=== PATIENT | female | born 1990 | race Caucasian/White ===

== ENCOUNTER 2019-07-17 02:21 | Emergency (ER) | payer OTHER ==
--- OUTSIDE RECORDS SUMMARY | 2019-07-17 02:24 | XMS REPORT ---
:1990 [facility] Address [address] [place] [id number] Care Team Providers Name Role Phone Unavailable Unavailable Unavailable Problems This patient has no known problems. Allergies, Adverse Reactions, Alerts This patient has no known allergies or adverse reactions. Medications This patient has no known medications.
--- OUTSIDE RECORDS SUMMARY | 2019-07-17 02:24 | XMS REPORT ---
:1990 Author Organization eClinical[employer] Care Team Providers Name Role Phone Judi Joshua Provider Role Unavailable Allergies, Adverse Reactions, Alerts Substance Reaction Event Type penicillin Info Not Available Drug Allergy Problems Problem Type Condition Code Onset Dates Condition Status Problem Low back pain M54.5 Active Problem Hepatitis B vaccination status Z78.9 Active unknown Problem Measles, mumps, rubella (MMR) Z78.9 Active vaccination status unknown Problem Atypical chest pain R07.89 Active Problem Tinea pedis of both feet B35.3 Active Problem Chest pain on breathing R07.1 Active Problem Encounter for general adult Z00.00 Active medical examination without abnormal findings Problem Varicella vaccination status Z78.9 Active unknown Problem Screening examination for Z11.1 Active pulmonary tuberculosis Problem Strain of left wrist, initial S66.912A Active encounter Assessment Atypical chest pain R07.89 Active Assessment Chest pain on breathing R07.1 Active Problem Dysthymic disorder F34.1 Active Problem Migraine with status migrainosus, G43.901 Active not intractable, unspecified migraine type Problem Acute seborrheic dermatitis L21.9 Active Problem Infectious gastroenteritis and A09 Active colitis, unspecified Problem Disturbance in sleep behavior G47.9 Active Medications Medication Code System Code Instructions Start Date End Date Status Dosage Mirena NDC 0 Active not defined Results Name Result Date Reference Range Unit Abnormality Flag Chest Pa And Lat (2 Views) EKG Complete Summary Purpose eClinicalWorks Submission
--- NOTE | 2019-07-17 02:48 | ER ---
Nurse's Notes [facility] Name: Melissa Lam Age: 29 yrs Sex: Female : 1990 Arrival Date: 07/17/2019 Time: 02:24 Bed 16 Private MD: Diagnosis: Urinary tract infection, site not specified Presentation: 07/17 02:30 Presenting complaint: Patient states: urinary frequency since yesterday afternoon and aa1 reports know she feels the constant urge to urinate but only small amounts are coming out at a time and she noticed some blood as well. Transition of care: patient was not received from another setting of care. Onset of symptoms was June 15, 2019. Risk Assessment: Do you want to hurt yourself or someone else? Patient reports no desire to harm self or others. Initial Sepsis Screen: Does the patient meet any 2 criteria? No. Patient's initial sepsis screen is negative. Does the patient have a suspected source of infection? Yes: Dysuria/Frequency/Urgency/UTI. Care prior to arrival: None. 02:30 Method Of Arrival: Ambulatory aa1 02:30 Acuity: KERRI 4 aa1 Triage Assessment: 02:33 General: Appears in no apparent distress. comfortable, Behavior is calm, cooperative, aa1 appropriate for age. 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 - Coronavirus screen:: The patient has NOT traveled to [place], [place], or [place] in the past 14 days. Proceed with normal triage process as indicated. - Social history:: Smoking status: Patient denies any tobacco usage or history of. - Ebola Screening: : No symptoms or risks identified at this time. Screenin:35 Abuse screen: Denies threats or abuse. Nutritional screening: No deficits noted. jb4 Tuberculosis screening: No symptoms or risk factors identified. Fall Risk None identified. Assessment: 02:35 General: Appears in no apparent distress. comfortable, Behavior is calm, cooperative, jb4 appropriate for age. Pain: Complains of pain in suprapubic area, right lower quadrant and left lower quadrant Pain does not radiate. Pain currently is 7 out of 10 on a pain scale. Neuro: Level of Consciousness is awake, alert, obeys commands, Oriented to person, place, time, situation. Cardiovascular: Patient's skin is warm and dry. Respiratory: Airway is patent Respiratory effort is even, unlabored, Respiratory pattern is regular, symmetrical. GI: Reports lower abdominal pain. : Reports burning with urination. EENT: No signs and/or symptoms were reported regarding the EENT system. Derm: Skin is intact, Skin is pink, warm \T\ dry. Musculoskeletal: No signs and/or symptoms reported regarding the musculoskeletal system. Vital Signs: 02:30 BP 140 / 94; Pulse 98; Resp 16; Temp 97.9(O); Pulse Ox 100% on R/A; jb4 02:33 Weight 75.75 kg; Height 5 ft. 9 in. (175.26 cm); Pain 7/10; aa1 02:33 Body Mass Index 24.66 (75.75 kg, 175.26 cm) aa1 ED Course: 02:24 Patient arrived in ED. jg7 02:30 Javy Bolden, RN is Primary Nurse. jb4 02:33 Triage completed. aa1 02:34 [facility] la1 02:34 Bryson Figueroa MD is Attending Physician. la1 02:35 Patient has correct armband on for positive identification. Bed in low position. Call jb4 light in reach. Side rails up X 1. Pulse ox on. NIBP on. 03:09 No provider procedures requiring assistance completed. Patient did not have IV access jb4 during this emergency room visit. Administered Medications: 03:07 Drug: Macrobid 100 mg Route: PO; jb4 03:08 Follow up: Response: Medication administered at discharge. jb4 03:07 Drug: Pyridium 200 mg Route: PO; jb4 03:08 Follow up: Response: No adverse reaction; Medication administered at discharge. jb4 Outcome: 02:47 Discharge ordered by . la1 03:09 Discharged to home ambulatory. jb4 03:09 Condition: stable 03:09 Discharge instructions given to patient, Instructed on discharge instructions, follow up and referral plans. medication usage, Demonstrated understanding of instructions, follow-up care, medications, Prescriptions given X 2. 03:10 Patient left the ED. jb4 Addendum: 07/20/2019 07:18 Addendum: Culture Results: Positive urine culture. No further action required. Bacteria e b sensitive to prescribed antibiotic. Signatures: Sofya Nicole RN RN aa1 Felipe Weinstein, EXCAVATOR OPERATOR-C EXCAVATOR OPERATOR-Cla1 Javy Bolden RN RN jb4 Aydee Harris Jessica jg7
--- NOTE | 2019-07-17 02:49 | EDPHYS ---
Physician Documentation [facility] Name: Melissa Lam Age: 29 yrs Sex: Female : 1990 Arrival Date: 07/17/2019 Time: 02:24 Bed 16 Private MD: ED Physician Bryson Figueroa HPI: 07/17 02:37 This 29 yrs old Female presents to ER via Ambulatory with complaints of Pain la1 With Urination. 02:37 The patient presents with urinary symptoms, dysuria, frequency, hematuria, urgency. la1 Onset: The symptoms/episode began/occurred today. Modifying factors: The symptoms are alleviated by nothing, the symptoms are aggravated by nothing. Associated signs and symptoms: Pertinent negatives: cramping, fever, nausea, vaginal discharge, vomiting. Severity of symptoms: At their worst the symptoms were mild. The patient's method of control includes iud. The patient has experienced a previous episode. The patient has not recently seen a physician. 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 - Coronavirus screen:: The patient has NOT traveled to [place], [place], or [place] in the past 14 days. Proceed with normal triage process as indicated. - Social history:: Smoking status: Patient denies any tobacco usage or history of. - Ebola Screening: : No symptoms or risks identified at this time. ROS: 02:38 Positive for urinary symptoms, hematuria, burning with urination. la1 02:38 Constitutional: Negative for fever, chills, and weight loss. 02:38 All other systems are negative. Exam: 02:38 Constitutional: This is a well developed, well nourished patient who is awake, alert, la1 and in no acute distress. Head/Face: Normocephalic, atraumatic. Eyes: Pupils equal round and reactive to light, extra-ocular motions intact. ENT: Mucous membranes moist. Neck: Trachea midline Chest/axilla: Normal chest wall appearance and motion. Nontender with no deformity. No lesions are appreciated. Cardiovascular: No pulse deficits. Respiratory: No increased work of breathing 02:38 Back: No spinal tenderness. No costovertebral tenderness. Full range of motion. 02:38 Abdomen/GI: Inspection: abdomen appears normal, Bowel sounds: normal, in all quadrants, Palpation: soft, in all quadrants, nontender, in all quadrants, Indicators: McBurney's point is not tender, Gonzales's sign is negative, Rovsing's sign is negative, Obturator sign is negative, Psoas sign is negative. Vital Signs: 02:30 BP 140 / 94; Pulse 98; Resp 16; Temp 97.9(O); Pulse Ox 100% on R/A; jb4 02:33 Weight 75.75 kg; Height 5 ft. 9 in. (175.26 cm); Pain 7/10; aa1 02:33 Body Mass Index 24.66 (75.75 kg, 175.26 cm) aa1 MDM: 02:34 Patient medically screened. la1 02:39 Data reviewed: vital signs, nurses notes, lab test result(s), and as a result, I will la1 discharge patient. Data interpreted: Pulse oximetry: on room air is 100 %. Interpretation: normal. Counseling: I had a detailed discussion with the patient and/or guardian regarding: the historical points, exam findings, and any diagnostic results supporting the discharge/admit diagnosis, lab results, the need for outpatient follow up, a family practitioner. 07/17 02:50 Order name: Urine Culture [facility] 07/17 02:55 Order name: Urine Dipstick--Ancillary (enter results) in 07/17 02:29 Order name: Urine Dipstick-Ancillary (obtain specimen); Complete Time: 02:55 aa 07/17 02:55 Order name: Urine --Ancillary (enter results) in 07/17 02:29 Order name: Urine Test (obtain specimen); Complete Time: 02:55 aa Administered Medications: 03:07 Drug: Macrobid 100 mg Route: PO; jb4 03:08 Follow up: Response: Medication administered at discharge. jb4 03:07 Drug: Pyridium 200 mg Route: PO; jb4 03:08 Follow up: Response: No adverse reaction; Medication administered at discharge. jb4 Disposition: 03:15 Co-signature as Attending Physician, Bryson Figueroa MD. pkl Disposition: 07/17/19 02:47 Discharged to Home. Impression: Urinary tract infection, site not specified. - Condition is Stable. - Discharge Instructions: Urinary Tract Infection, Adult, Urinary Tract Infection, Adult, Bhhi-yq-Telx. - Prescriptions for Pyridium 200 mg Oral Tablet - take 1 tablet by ORAL route every 8 hours for 3 days; 9 tablet. Macrobid 100 mg Oral Capsule - take 1 capsule by ORAL route every 12 hours for 7 days; 14 capsule. - Medication Reconciliation Form, Thank You Letter, Antibiotic Education form. - Follow up: Private Physician; Reason: Recheck today's complaints, Re-evaluation by your physician. - Problem is new. - Symptoms have improved. Signatures: Dispatcher [employer] EDMS Sofya Nicole, RN RN aa1 Bryson Figueroa MD MD pkl Felipe Weinstein, FISHER SPONGE HOOKING-C FISHER SPONGE HOOKING-Cla1 Javy Bolden RN RN jb4 Corrections: (The following items were deleted from the chart) 03:10 02:47 07/17/2019 02:47 Discharged to Home. Impression: Urinary tract infection, site jb4 not specified. Condition is Stable. Discharge Instructions: Urinary Tract Infection, Adult, Urinary Tract Infection, Adult, Fzoi-yu-Phok. Prescriptions for Pyridium 200 mg Oral Tablet - take 1 tablet by ORAL route every 8 hours for 3 days; 9 tablet, Macrobid 100 mg Oral Capsule - take 1 capsule by ORAL route every 12 hours for 7 days; 14 capsule. and Forms are Medication Reconciliation Form, Thank You Letter, Antibiotic Education, Prescription Opioid Use. Follow up: Private Physician; Reason: Recheck today's complaints, Re-evaluation by your physician. Problem is new. Symptoms have improved. la1
[2019-07-17] MEDS ORDERED: PHENAZOPYRIDINE 100MG TAB PO ONE (03:01)
[2019-07-17] MEDS ORDERED: NITROFURAN MACRO 100 MG CAP PO ONE (03:02)
[2019-07-17 03:23] VITALS: BP 140/94; TEMP 97.9; O2SAT 100
[2019-07-17 03:32] LABS: Urine Blood 3+ (NEG); Urine Glucose NEGATIVE (NEG); Urine Protein 2+ (NEG); Urine Specific Gravity >1.030 (1.005-1.030)
== END 2019-07-17 03:10 | disposition home or self-care (01) ==
LOC: ER 02:21
DX: N39.0 Urinary tract infection, site not specified (principal); Z88.0 Allergy status to penicillin; Z88.1 Allergy status to other antibiotic agents
CPT/HCPCS: 81003; 81025; 87077; 87086; 87088; 87186; 99283

== ENCOUNTER 2019-07-25 09:21 | Emergency (ER) | payer OTHER ==
--- OUTSIDE RECORDS SUMMARY | 2019-07-25 09:23 | XMS REPORT ---
:1990 [facility] Address [address] [place] [id number] Care Team Providers Name Role Phone Unavailable Unavailable Unavailable Problems This patient has no known problems. Allergies, Adverse Reactions, Alerts This patient has no known allergies or adverse reactions. Medications This patient has no known medications.
--- NOTE | 2019-07-25 10:40 | RAD REPORT ---
EXAM DESCRIPTION: CT - [id number] - 07/25/2019 10:30 am CLINICAL HISTORY: Trauma, head and neck injury. PAIN COMPARISON: No comparisons TECHNIQUE: Axial 5 mm thick images of the head were obtained. Axial 2 mm thick images of the cervical spine were obtained with sagittal and coronal reconstruction images generated and reviewed. All CT scans are performed using dose optimization technique as appropriate and may include automated exposure control or mA/KV adjustment according to patient size. FINDINGS: CT HEAD WITHOUT CONTRAST: No acute hemorrhage, hydrocephalus or extra-axial collection is identified.No areas of brain edema or midline shift. The paranasal sinuses and mastoids are clear.The calvarium is intact. CT CERVICAL SPINE WITHOUT CONTRAST: No fracture or subluxation.No prevertebral soft tissues swelling is identified. IMPRESSION: No acute intracranial or cervical spine findings.
[2019-07-25] MEDS ORDERED: NA CHLORIDE 0.9% 1,000 ML ONE (10:41)
[2019-07-25 10:54] LABS: Absolute Lymphocytes (CBC) 1.9 K/uL (0.7-4.9); Basophils % 0.5 % (0-1.3); Lymphocytes % 18.4 % (15.3-44.8); MPV 7.8 fL (7.6-11.3)
[2019-07-25 11:09] LABS: Albumin 4.1 g/dL (3.4-5.0); Bilirubin Direct 0.2 mg/dL (0-0.2); Bilirubin Total 0.7 mg/dL (0.2-1.0); Potassium 3.8 mmol/L (3.5-5.1); Protein, Total 8.8 g/dL (6.4-8.2)
[2019-07-25] MEDS ORDERED: KETOROLAC 30 MG/ML INJ ONE (11:36)
[2019-07-25 11:57] LABS: Urine Blood NEGATIVE (NEG); Urine Glucose NEGATIVE (NEG); Urine Protein NEGATIVE (NEG); Urine Specific Gravity 1.015 (1.005-1.030)
[2019-07-25 12:09] LABS: Urine Bacteria 20-50 /HPF (<20); Urine Culture Reflex Order REFLEXED; Urine RBC <5 /HPF (NONE SEEN)
--- NOTE | 2019-07-25 12:37 | EDPHYS ---
Physician Documentation [facility] Name: Melissa Lam Age: 29 yrs Sex: Female : 1990 Arrival Date: 07/25/2019 Time: 09:23 Bed 13 Private MD: ED Physician Gordon Van HPI: 07/25 10:53 This 29 yrs old Female presents to ER via Ambulatory with complaints of kb Passed Out Prior To Arrival. 10:53 The patient has experienced syncope, lost consciousness. Onset: The symptoms/episode kb began/occurred just prior to arrival. Duration: This was a single episode. Context: occurred at home, occurred while the patient was defecating, Just prior to the episode the patient experienced abdominal pain, headache. Associated injury: Head/face: right occipital area, pain, Neck: right supraclavicular area and right clavicle. Associated signs and symptoms: Pertinent positives: abdominal pain, diarrhea, headache, nausea. Current symptoms: headache, that is moderate. The patient has not experienced similar symptoms in the past. The patient has not recently seen a physician. Pt reports headache and nausea for 3 days, abd pain and diarrhea this morning. States she went to the restroom and passed out while sitting on the toilet. Both sons have had a viral illness for the last week. 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 - Coronavirus screen:: The patient has NOT traveled to [place] in the past 14 days. Proceed with normal triage process as indicated. - Social history:: Smoking status: Patient denies any tobacco usage or history of. - Ebola Screening: : Patient negative for fever greater than or equal to 101.5 degrees Fahrenheit, and additional compatible Ebola Virus Disease symptoms Patient denies exposure to infectious person Patient denies travel to an Ebola-affected area in the 21 days before illness onset No symptoms or risks identified at this time. ROS: 10:52 Constitutional: Negative for fever, chills, and weight loss, ENT: Negative for injury, kb pain, and discharge, Neck: Negative for injury, pain, and swelling, Cardiovascular: Negative for chest pain, palpitations, and edema, Respiratory: Negative for shortness of breath, cough, wheezing, and pleuritic chest pain, Back: Negative for injury and pain, : Negative for injury, bleeding, discharge, and swelling, MS/Extremity: Negative for injury and deformity, Skin: Negative for injury, rash, and discoloration. 10:52 Abdomen/GI: Positive for abdominal pain, nausea, diarrhea. 10:52 Neuro: Positive for headache. Exam: 10:43 ECG was reviewed by the Attending Physician. kb 10:53 Constitutional: This is a well developed, well nourished patient who is awake, alert, kb and in no acute distress. Head/Face: Normocephalic, atraumatic. ENT: Nares patent. No nasal discharge, no septal abnormalities noted. Tympanic membranes are normal and external auditory canals are clear. Oropharynx with no redness, swelling, or masses, exudates, or evidence of obstruction, uvula midline. Mucous membranes moist. Neck: Trachea midline, no thyromegaly or masses palpated, and no cervical lymphadenopathy. Supple, full range of motion without nuchal rigidity, or vertebral point tenderness. No Meningismus. Chest/axilla: Normal chest wall appearance and motion. Nontender with no deformity. No lesions are appreciated. Cardiovascular: Regular rate and rhythm with a normal S1 and S2. No gallops, murmurs, or rubs. Normal PMI, no JVD. No pulse deficits. Respiratory: Lungs have equal breath sounds bilaterally, clear to auscultation and percussion. No rales, rhonchi or wheezes noted. No increased work of breathing, no retractions or nasal flaring. Back: No spinal tenderness. No costovertebral tenderness. Full range of motion. Skin: Warm, dry with normal turgor. Normal color with no rashes, no lesions, and no evidence of cellulitis. MS/ Extremity: Pulses equal, no cyanosis. Neurovascular intact. Full, normal range of motion. Neuro: Awake and alert, GCS 15, oriented to person, place, time, and situation. Cranial nerves II-XII grossly intact. Motor strength 5/5 in all extremities. Sensory grossly intact. Cerebellar exam normal. Normal gait. 10:53 Abdomen/GI: Inspection: abdomen appears normal, Bowel sounds: normal, in all quadrants, Palpation: soft, in all quadrants, mild abdominal tenderness, in all quadrants. Vital Signs: 09:53 BP 127 / 81; Pulse 98; Resp 16; Temp 98.1(TE); Pulse Ox 99% on R/A; Weight 74.84 kg; iw Height 5 ft. 9 in. (175.26 cm); Pain 7/10; 11:00 BP 117 / 72; Pulse 86; Resp 16; Pulse Ox 100% on R/A; ph 12:04 BP 111 / 69; Pulse 85; Resp 18; Pulse Ox 99% on R/A; ph 09:53 Body Mass Index 24.37 (74.84 kg, 175.26 cm) iw MDM: 09:45 Patient medically screened. kb 10:49 Differential Diagnosis: idiopathic syncope, vasovagal episode. Data reviewed: vital kb signs, nurses notes. Data interpreted: Pulse oximetry: on room air is 99 %. Interpretation: normal. 12:36 Counseling: I had a detailed discussion with the patient and/or guardian regarding: the kb historical points, exam findings, and any diagnostic results supporting the discharge/admit diagnosis, lab results, radiology results, the need for outpatient follow up, a family practitioner, to return to the emergency department if symptoms worsen or persist or if there are any questions or concerns that arise at home. 07/25 10:14 Order name: Basic Metabolic Panel 07/25 10:14 Order name: CBC with Diff 07/25 10:14 Order name: Hepatic Function 07/25 10:14 Order name: Lipase 07/25 10:14 Order name: Urine Microscopic Only 07/25 10:14 Order name: [place] Screen Profile 07/25 10:14 Order name: Flu kb 07/25 10:56 Order name: CBC with Automated Diff; Complete Time: 11:01 EDMS 07/25 11:10 Order name: Basic Metabolic Panel; Complete Time: 11:12 EDMS 07/25 11:10 Order name: Liver (Hepatic) Function; Complete Time: 11:12 EDMS 07/25 11:10 Order name: Lipase; Complete Time: 11:12 EDMS 07/25 11:13 Order name: Influenza Screen (A ; Complete Time: 11:14 EDMS 07/25 11:32 Order name: Urine Dipstick--Ancillary (enter results) bd 07/25 11:32 Order name: Urine --Ancillary (enter results) bd 07/25 10:14 Order name: IV Saline Lock; Complete Time: 10:54 kb 07/25 10:14 Order name: Labs collected and sent; Complete Time: 10:54 kb 07/25 10:14 Order name: Urine Test (obtain specimen); Complete Time: 11:06 kb 07/25 10:14 Order name: Urine Dipstick-Ancillary (obtain specimen); Complete Time: 11:06 kb 07/25 10:14 Order name: EKG; Complete Time: 10:15 kb 07/25 10:14 Order name: EKG - Nurse/Tech; Complete Time: 10:54 kb 07/25 10:14 Order name: CT Head C Spine kb 07/25 10:43 Order name: CT; Complete Time: 10:43 EDMS 07/25 11:34 Order name: [place] Screen; Complete Time: 11:41 EDMS 07/25 11:58 Order name: Urine --Ancillary; Complete Time: 12:01 EDMS 07/25 11:58 Order name: Urine Dipstick-Ancillary; Complete Time: 12:01 EDMS 07/25 12:10 Order name: Urine Microscopic Only; Complete Time: 12:30 EDMS EC:43 Rate is 77 beats/min. Rhythm is regular, Normal Sinus Rhythm. Right axis deviation kb noted. LA interval is normal at 130 msec. QRS interval is normal at 74 msec. QT interval is normal at 390 msec. Administered Medications: 11:06 Drug: NS 0.9% 1000 ml Route: IV; Rate: 1000 ml; Site: right antecubital; ph 11:45 Drug: TORadol - Ketorolac 15 mg Route: IVP; Site: right antecubital; ph Disposition: 13:32 Co-signature as Attending Physician, Gordon Van MD I agree with the assessment and kdr plan of care. Disposition: 07/25/19 12:36 Discharged to Home. Impression: Syncope and collapse. - Condition is Stable. - Discharge Instructions: Syncope, [id number]. - Prescriptions for Zofran 4 mg Oral Tablet - take 1 tablet by ORAL route every 6 hours As needed; 20 tablet. - Medication Reconciliation Form, Thank You Letter, Antibiotic Education, Prescription Opioid Use, Family Work Release form. - Follow up: Emergency Department; When: As needed; Reason: Worsening of condition. Follow up: Private Physician; When: 2 - 3 days; Reason: Recheck today's complaints, Continuance of care, Re-evaluation by your physician. Signatures: Dispatcher [employer] EDMS Diana Stewart, MULTIMEDIA SERVICES MANAGER-C MULTIMEDIA SERVICES MANAGER-Ckb Gordon Van MD MD kdr Williams, Irene, RN RN iw Velia Diaz RN RN ph Corrections: (The following items were deleted from the chart) 13:09 12:36 07/25/2019 12:36 Discharged to Home. Impression: Syncope and collapse. Condition ph is Stable. Forms are Medication Reconciliation Form, Thank You Letter, Antibiotic Education, Prescription Opioid Use. Follow up: Emergency Department; When: As needed; Reason: Worsening of condition. Follow up: Private Physician; When: 2 - 3 days; Reason: Recheck today's complaints, Continuance of care, Re-evaluation by your physician. kb
--- NOTE | 2019-07-25 12:37 | ER ---
Nurse's Notes [facility] Name: Melissa Lam Age: 29 yrs Sex: Female : 1990 Arrival Date: 07/25/2019 Time: 09:23 Bed 13 Private MD: Diagnosis: Syncope and collapse Presentation: 07/25 09:51 Presenting complaint: Patient states: had headache last night, woke up with abd pain iw this morning, went to bathroom and had a BM then passed out while finishing, hit her head and shoulder on a cabinet, pt still having a bad headache and mild abd pain. Transition of care: patient was not received from another setting of care. Onset of symptoms was July 25, 2019. Risk Assessment: Do you want to hurt yourself or someone else? Patient reports no desire to harm self or others. Initial Sepsis Screen: Does the patient meet any 2 criteria? No. Patient's initial sepsis screen is negative. Does the patient have a suspected source of infection? No. Patient's initial sepsis screen is negative. Care prior to arrival: None. 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 - Coronavirus screen:: The patient has NOT traveled to [place] in the past 14 days. Proceed with normal triage process as indicated. - Social history:: Smoking status: Patient denies any tobacco usage or history of. - Ebola Screening: : Patient negative for fever greater than or equal to 101.5 degrees Fahrenheit, and additional compatible Ebola Virus Disease symptoms Patient denies exposure to infectious person Patient denies travel to an Ebola-affected area in the 21 days before illness onset No symptoms or risks identified at this time. Screenin:02 Abuse screen: Denies threats or abuse. Denies injuries from another. Nutritional ph screening: No deficits noted. Tuberculosis screening: No symptoms or risk factors identified. Fall Risk Fall in past 12 months (25 points). No secondary diagnosis (0 pts). No IV (0 pts). Ambulatory Aid- None/Bed Rest/Nurse Assist (0 pts). Gait- Normal/Bed Rest/Wheelchair (0 pts) Mental Status- Oriented to own ability (0 pts). Total Stewart Fall Scale indicates Low Risk Score (25-44 pts). Fall prevention measures have been instituted. Side Rails Up X 2 Frequent Obs/Assesments occuring As available Patient and Family Educated on Fall Prevention Program and strategies. Assessment: 10:15 General: Appears in no apparent distress. comfortable, well groomed, Behavior is calm, ph cooperative, appropriate for age, Denies fever. Pain: Complains of pain in right clavicle and right occipital area. Neuro: Level of Consciousness is awake, alert, obeys commands, Oriented to person, place, time, situation, Reports headache in right occipital area, a syncopal episode Denies weakness blurred vision dizziness. Cardiovascular: Reports syncope, Denies chest pain, nausea, vomiting, Rhythm is regular. Respiratory: Airway is patent Respiratory effort is even, unlabored. 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 Derm: Skin is intact, is healthy with good turgor, Skin is pink, warm \T\ dry. Musculoskeletal: Circulation, motion, and sensation intact. Range of motion: intact in all extremities. 11:30 Reassessment: Patient appears in no apparent distress at this time. Patient and/or ph family updated on plan of care and expected duration. Pain level reassessed. Patient is alert, oriented x 3, equal unlabored respirations, skin warm/dry/pink. Vital Signs: 09:53 BP 127 / 81; Pulse 98; Resp 16; Temp 98.1(TE); Pulse Ox 99% on R/A; Weight 74.84 kg; iw Height 5 ft. 9 in. (175.26 cm); Pain 7/10; 11:00 BP 117 / 72; Pulse 86; Resp 16; Pulse Ox 100% on R/A; ph 12:04 BP 111 / 69; Pulse 85; Resp 18; Pulse Ox 99% on R/A; ph 09:53 Body Mass Index 24.37 (74.84 kg, 175.26 cm) iw ED Course: 09:23 Patient arrived in ED. ag5 09:30 Diana Stewart FNP-C [facility]. kb 09:30 Gordon Van MD is Attending Physician. kb 09:53 Triage completed. iw 09:53 Arm band placed on. iw 10:01 Velia Diaz, RN is Primary Nurse. ph 10:02 Patient has correct armband on for positive identification. Bed in low position. Call ph light in reach. Side rails up X 1. Pulse ox on. NIBP on. Door closed. Noise minimized. Warm blanket given. 10:44 Initial lab(s) drawn, by me, sent to lab. Flu and/or RSV swab sent to lab. Inserted dh3 saline lock: 22 gauge in right antecubital area, using aseptic technique. Blood collected. 12:03 No provider procedures requiring assistance completed. ph Administered Medications: 11:06 Drug: NS 0.9% 1000 ml Route: IV; Rate: 1000 ml; Site: right antecubital; ph 11:45 Drug: TORadol - Ketorolac 15 mg Route: IVP; Site: right antecubital; ph Outcome: 12:36 Discharge ordered by . kb 13:09 Patient left the ED. ph Signatures: Diana Stewart FNP-C FNP-Zahira Barlow, RUPAL RN Velia Diaz, RN RN Merry Sky 3 Fawn Mendoza ag5
--- NOTE | 2019-07-25 17:59 | EKG ---
Test Date: 2019-07-25 Test Time: 10:38:31 Dopster: [place] MEASUREMENT RESULTS: Intervals: Rate: 77 KS: 130 QRSD: 74 QT: 390 QTc: 441 [place]: P: 72 KS: 130 QRS: 95 T: 70 INTERPRETIVE STATEMENTS: Normal sinus rhythm Rightward axis Borderline ECG No previous ECG available for comparison Electronically Signed On 07-25-19 17:58:12 AUTOMOTIVE SALES PROFESSIONAL by Boris Suggs
[2019-07-26 19:03] VITALS: TEMP 98.1
[2019-07-26 19:07] VITALS: BP 111/69; O2SAT 99
== END 2019-07-25 13:09 | disposition home or self-care (01) ==
LOC: ER 09:21
DX: R55 Syncope and collapse (principal); Z88.0 Allergy status to penicillin; Z88.1 Allergy status to other antibiotic agents
CPT/HCPCS: 93005; 87088; 85025; 80048; 36415; 86308; 81025; 80076; 83690; 87804 ×2; 70450; 72125; 96374; 99284; J7030; 81003; 81015; 87086

== ENCOUNTER 2020-08-24 19:22 | Emergency (ER) | payer OTHER ==
--- OUTSIDE RECORDS SUMMARY | 2020-08-24 19:25 | XMS REPORT | Continuity of Care Document ---
:1990 Author Organization [facility] t Address [address] [place] [address] Care Team Providers Name Role Phone Unavailable Unavailable Unavailable Problems This patient has no known problems. Allergies, Adverse Reactions, Alerts Allergy Allergy Status Severity Reaction(s) Onset Inactive Treating Comm ents Source Name Type Date Date Clinician penicill Adverse Active Info Not [facility] Medications Ordered Filled Start Stop Current Ordering Indication Dosage Frequency Signature Comments Components Source Medication Medication Date Date Medication? Clinician (SIG) Name Name Angela Miller 2019-0 Yes Judi [address] [facility] [place] [facility] Topiramate Topiramate 2019-0 Yes Judi [address] [facility] [place] [facility] Bactrim DS Bactrim DS 2019-0 2020- No Judi [address] [facility] 3[facility]02 -09 [place] [facility] Mirena Mirena Yes Judi not [facility] defined [facility]ics Immunizations Ordered Filled Immunization Date Status Comments Sourc e Immunization Name Name Tb PPD intradermal, Tb PPD intradermal, 2018-08-[address] [facility] Procedures This patient has no known procedures. Encounters Start End Encounter Admission Attending Care Care Encounter Source Date/Time Date/Time Type Type Clinicians Facility Department ID 2020-04-16 2020-04-16 [id number] 2020-03-13 2020-03-13 [facility] [id number] [facility] 2020-03-10 2020-03-10 [facility] [id number] 2019-08-13 2019-08-13 [facility] [id number] [facility] Clin[facility] 2019-04-04 2019-04-04 [facility] [id number] [facility] 2018-11-28 2018-11-28 [facility] [id number] [facility] 15[facility] 15:40:00 [facility] Clin[facility] 2018-10-09 2018-10-09 [facility] [id number] [facility] 10[facility]30[facility]00 10:30:00 [facility] Clin[facility] 2018-09-27 2018-09-27 [facility] [id number] [facility] 13[facility] 13[facility]51[facility] 2018-09-25 2018-09-25 [facility] [id number] [facility] 15:40[facility]00 15:40:00 [facility]pat[facility] Clinics 2018-09-25 2018-09-25 [facility] [id number] [address] 11:30:00 11:30:00 [facility] Outpat[facility] Clinics 2018-08-29 2018-08-29 [facility] [id number] 14:30:00 14:30:00 [facility] Medicine Outpati ent Clinics Results This patient has no known results.
[2020-08-24 21:30] LABS: Absolute Lymphocytes (CBC) 0.8 K/uL (0.7-4.9); Basophils % 0.1 % (0-1.3); Lymphocytes % 8.7 % (15.3-44.8); MPV 7.8 fL (7.6-11.3); RBC Red Blood Cell Count 4.49 M/uL (3.86-4.86)
[2020-08-24] MEDS ORDERED: ONDANSETRON 4 MG/2 ML VIAL ONE (21:38)
[2020-08-24] MEDS ORDERED: NA CHLORIDE 0.9% 1,000 ML ONE (21:38)
[2020-08-24 21:47] LABS: Albumin 4.3 g/dL (3.4-5.0); Bilirubin Direct 0.2 mg/dL (0-0.2); Bilirubin Total 1.2 mg/dL (0.2-1.0); Potassium 3.3 mmol/L (3.5-5.1); Protein, Total 8.9 g/dL (6.4-8.2)
[2020-08-24 22:02] LABS: SARS-COV-2 RT PCR NEGATIVE (NEGATIVE)
[2020-08-24] MEDS ORDERED: ACETAMINOPHEN 500 MG TAB ONE (22:03)
--- NOTE | 2020-08-24 22:33 | EDPHYS ---
Physician Documentation [facility] Name: Melissa Lam Age: 30 yrs Sex: Female : 1990 Arrival Date: 08/24/2020 Time: 19:23 Bed 15 Private MD: ED Physician Evans Bridges HPI: 08/24 23:40 This 30 yrs old Female presents to ER via Ambulatory with complaints of kb Vomiting, Fever. 23:40 The patient presents to the emergency department with nausea, vomiting, diarrhea. kb Onset: The symptoms/episode began/occurred yesterday. Possible causes: 2nd moderna covid vaccine. The symptoms are aggravated by nothing. The symptoms are alleviated by nothing. Associated signs and symptoms: Pertinent positives: diarrhea, fever, nausea, vomiting, Pertinent negatives: abdominal pain. Severity of symptoms: At their worst the symptoms were moderate in the emergency department the symptoms are unchanged. The patient has not experienced similar symptoms in the past. The patient has not recently seen a physician. 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 - Social history:: Smoking status: Patient denies any tobacco usage or history of. ROS: 23:39 Cardiovascular: Negative for chest pain, palpitations, and edema, Respiratory: Negative kb for shortness of breath, cough, wheezing, and pleuritic chest pain, MS/Extremity: Negative for injury and deformity, Skin: Negative for injury, rash, and discoloration. 23:39 Constitutional: Positive for fever, malaise. 23:39 Abdomen/GI: Positive for nausea, vomiting, and diarrhea. 23:39 Neuro: Positive for headache. Exam: 23:40 Constitutional: This is a well developed, well nourished patient who is awake, alert, kb and in no acute distress. Head/Face: Normocephalic, atraumatic. Cardiovascular: Regular rate and rhythm with a normal S1 and S2. No gallops, murmurs, or rubs. No pulse deficits. Respiratory: Respirations even and unlabored. No increased work of breathing, no retractions or nasal flaring. Abdomen/GI: Soft, non-tender. No distention Skin: Warm, dry with normal turgor. Normal color with no rashes, no lesions, and no evidence of cellulitis. MS/ Extremity: Pulses equal, no cyanosis. Neurovascular intact. Full, normal range of motion. Neuro: Awake and alert, GCS 15, oriented to person, place, time, and situation. Moves all extremities. Normal gait. Vital Signs: 20:06 BP 135 / 90; Pulse 107; Resp 17; Temp 99.1; Pulse Ox 99% ; Weight 75.75 kg; Height 5 ll1 ft. 9 in. (175.26 cm); Pain 9/10; 21:00 BP 114 / 82; Pulse 104; Resp 18; Pulse Ox 98% ; wh 21:15 Temp 99.7(O); ll1 22:00 BP 104 / 74; Pulse 97; Resp 18; Pulse Ox 99% on R/A; wh 20:06 Body Mass Index 24.66 (75.75 kg, 175.26 cm) ll1 MDM: 20:54 Patient medically screened. kb 23:38 Data reviewed: vital signs, nurses notes. Data interpreted: Pulse oximetry: on room air kb is 99 %. Interpretation: normal. Counseling: I had a detailed discussion with the patient and/or guardian regarding: the historical points, exam findings, and any diagnostic results supporting the discharge/admit diagnosis, lab results, the need for outpatient follow up, a family practitioner, to return to the emergency department if symptoms worsen or persist or if there are any questions or concerns that arise at home. 08/24 19:43 Order name: Basic Metabolic Panel; Complete Time: 22:00 tw4 08/24 19:43 Order name: CBC with Diff; Complete Time: 22:40 tw4 08/24 19:43 Order name: Hepatic Function; Complete Time: 22:00 tw4 08/24 19:43 Order name: Lipase; Complete Time: 22:00 tw4 08/24 19:43 Order name: IV Saline Lock; Complete Time: 21:18 tw4 08/24 22:01 Order name: Manual Differential; Complete Time: 22:40 EDMS 08/24 22:03 Order name: COVID-19/FLU A+B; Complete Time: 22:11 EDMS 08/24 19:43 Order name: Labs collected and sent; Complete Time: 21:18 tw4 Administered Medications: 21:22 Drug: NS 0.9% 1000 ml Route: IV; Rate: 1000 ml; Site: right antecubital; 22:12 Follow up: Response: No adverse reaction; IV Status: Completed infusion 21:24 Drug: Zofran (Ondansetron) 4 mg Route: IVP; Site: right antecubital; 22:12 Follow up: Response: No adverse reaction; Nausea is decreased 21:47 Drug: Tylenol 1000 mg Route: PO; 22:13 Follow up: Response: No adverse reaction; Pain is decreased 22:29 Drug: Potassium Chloride 20 mEq Route: PO; 22:42 Follow up: Response: No adverse reaction Disposition: 08/25 05:35 Co-signature as Attending Physician, Evans Bridges MD I agree with the assessment and tw4 plan of care. Disposition: 08/24/20 22:32 Discharged to Home. Impression: Adverse reaction to moderna vaccine. - Condition is Stable. - Prescriptions for Zofran 4 mg Oral Tablet - take 1 tablet by ORAL route every 6 hours As needed; 20 tablet. - Medication Reconciliation Form, Thank You Letter, Antibiotic Education, Prescription Opioid Use form. - Follow up: Emergency Department; When: As needed; Reason: Worsening of condition. Follow up: Private Physician; When: 2 - 3 days; Reason: Recheck today's complaints, Continuance of care, Re-evaluation by your physician. Signatures: Dispatcher [employer] EDOK Diana Stewart, GLASS CURVATURE GAUGER-C GLASS CURVATURE GAUGER-Ckb Jessika Ross, RN RN Evans Bridges MD MD tw4 [facility] Javid Damon RN RN ll1 Corrections: (The following items were deleted from the chart) 08/24 21:23 20:48 Influenza Screen (A \T\ B)+BA.LAB.BRZ ordered. EDOK EDOK 21:23 20:48 CORONAVIRUS+MR.LAB.BRZ ordered. EDOK EDMS 22:01 21:32 CBC Smear Scan ordered. EDOK EDMS 22:42 22:32 08/24/2020 22:32 Discharged to Home. Impression: Adverse reaction to moderna mw2 vaccine. Condition is Stable. Forms are Medication Reconciliation Form, Thank You Letter, Antibiotic Education, Prescription Opioid Use. Follow up: Emergency Department; When: As needed; Reason: Worsening of condition. Follow up: Private Physician; When: 2 - 3 days; Reason: Recheck today's complaints, Continuance of care, Re-evaluation by your physician. kb
--- NOTE | 2020-08-24 22:33 | ER ---
Nurse's Notes [facility] Name: Melissa Lam Age: 30 yrs Sex: Female : 1990 Arrival Date: 08/24/2020 Time: 19:23 Bed 15 Private MD: Diagnosis: Adverse reaction to moderna vaccine Presentation: 08/24 20:05 Chief complaint: Patient states: N/V. body aches, fever since 1730 yesterday. Got the ll1 Moderna shot (2nd) right before her symptoms started. 20:06 Coronavirus screen: Client denies travel out of the [place] in the last 14 days. fatigue, ll1 nausea, vomiting. Client presents with at least one sign or symptom that may indicate coronavirus-19. Standard/surgical mask placed on the client. Ebola Screen: Patient denies travel to an Ebola-affected area in the 21 days before illness onset. Initial Sepsis Screen: Does the patient meet any 2 criteria? HR > 90 bpm. No. Patient's initial sepsis screen is negative. Does the patient have a suspected source of infection? Yes: Other: N/V. Risk Assessment: Do you want to hurt yourself or someone else? Patient reports no desire to harm self or others. Onset of symptoms was August 23, 2020. 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 - Social history:: Smoking status: Patient denies any tobacco usage or history of. Screenin:30 Abuse screen: Denies threats or abuse. Denies injuries from another. Nutritional wh screening: No deficits noted. Tuberculosis screening: No symptoms or risk factors identified. Fall Risk None identified. Assessment: 21:30 General: Appears in no apparent distress. Behavior is calm, cooperative, appropriate wh for age. General: Reports fever for feeling ill for. Pain: Complains of pain in headache. Neuro: Level of Consciousness is awake, alert, obeys commands, Oriented to person, place, time, situation, Appropriate for age Reports headache. Cardiovascular: Capillary refill < 3 seconds. Respiratory: Airway is patent Respiratory effort is even, unlabored, Respiratory pattern is regular, symmetrical. GI: Abdomen is flat, non-distended, Reports nausea, vomiting. : No signs and/or symptoms were reported regarding the genitourinary system. EENT: No signs and/or symptoms were reported regarding the EENT system. Derm: Skin is intact, is healthy with good turgor, Skin is pink, warm \T\ dry. normal. Musculoskeletal: Circulation, motion, and sensation intact. Vital Signs: 20:06 BP 135 / 90; Pulse 107; Resp 17; Temp 99.1; Pulse Ox 99% ; Weight 75.75 kg; Height 5 ll1 ft. 9 in. (175.26 cm); Pain 9/10; 21:00 BP 114 / 82; Pulse 104; Resp 18; Pulse Ox 98% ; wh 21:15 Temp 99.7(O); ll1 22:00 BP 104 / 74; Pulse 97; Resp 18; Pulse Ox 99% on R/A; wh 20:06 Body Mass Index 24.66 (75.75 kg, 175.26 cm) ll1 ED Course: 19:23 Patient arrived in ED. cl3 20:07 Triage completed. ll1 20:07 Arm band placed on. ll1 20:47 Diana Stewart FNP-C is [facility]. kb 20:47 Evans Bridges MD is Attending Physician. kb 20:55 Jessika Ross, RUPAL is Primary Nurse. wh 21:10 Initial lab(s) drawn, by me, sent to lab. COVID swab sent to lab. Flu and/or RSV swab jp3 sent to lab. Strep swab sent to lab. Inserted saline lock: 20 gauge in right antecubital area, using aseptic technique. Blood collected. Patient maintains SpO2 saturation greater than 95% on room air. 21:26 Bed in low position. Call light in reach. Side rails up X 1. Verbal reassurance given. jp3 Pulse ox on. NIBP on. 22:42 No provider procedures requiring assistance completed. IV discontinued, intact, wh bleeding controlled, No redness/swelling at site. Administered Medications: 21:22 Drug: NS 0.9% 1000 ml Route: IV; Rate: 1000 ml; Site: right antecubital; 22:12 Follow up: Response: No adverse reaction; IV Status: Completed infusion 21:24 Drug: Zofran (Ondansetron) 4 mg Route: IVP; Site: right antecubital; 22:12 Follow up: Response: No adverse reaction; Nausea is decreased 21:47 Drug: Tylenol 1000 mg Route: PO; 22:13 Follow up: Response: No adverse reaction; Pain is decreased 22:29 Drug: Potassium Chloride 20 mEq Route: PO; 22:42 Follow up: Response: No adverse reaction Outcome: 22:32 Discharge ordered by . kb 22:42 Patient left the ED. mw2 22:42 Discharged to home ambulatory. 22:42 Condition: stable 22:42 Discharge instructions given to patient, Instructed on discharge instructions, follow up and referral plans. medication usage, POC Demonstrated understanding of instructions, follow-up care, medications, POC Prescriptions given X 1. Signatures: Diana Stewart, BUSINESS EXCELLENCE MANAGER-C BUSINESS EXCELLENCE MANAGER-CkJessika Rodriguez RN RN Brenda Cristobal 2 Shantanu Deras 3 Shilo Damon cl3 Javid Damon RN RN ll1
[2020-08-24 22:35] LABS: Blood Morphology Comment NOT SEEN (NOT SEEN); Platelet Estimate ADEQ
[2020-08-24] MEDS ORDERED: POTASSIUM CL SA 10 MEQ TAB PO ONE (22:44)
[2020-08-25 17:36] VITALS: BP 104/74; O2SAT 99
[2020-08-25 17:37] VITALS: TEMP 99.7
== END 2020-08-24 22:42 | disposition home or self-care (01) ==
LOC: ER 19:22
DX: T88.1XXA Other complications following immunization, not elsewhere classified, initial encounter (principal); R50.9 Fever, unspecified; Z20.822 Contact with and (suspected) exposure to COVID-19; Z88.0 Allergy status to penicillin; Z88.1 Allergy status to other antibiotic agents
CPT/HCPCS: 85025; 80048; 36415; 80076; 83690; 0240U; J7030; J2405; 96361; 96374; 99284

== ENCOUNTER 2023-09-10 15:08 | Emergency (ER) | payer OTHER ==
--- OUTSIDE RECORDS SUMMARY | 2023-09-10 15:21 | XMS REPORT | Continuity of Care Document ---
Author Name Unknown Address [address] [facility] [address] [place] [address] [facility] Address [address] [facility] [address] [place] [address] Care Team Providers Care Flue Gas Analyst Name Role Phone JUDI HENRIQUEZ Primary Care Physician Unavaila Judi Dasilva Attending Clinician Unavailable Garry Attending Clinician Unavaila ble RADIOLOGY Attending Clinician Unavailable CHRETIEN_F Attending Clinician Unavailable DAVONTE MARTIN Attending Clinician Unavailbeny Pennington_Tio Attending Clinician Unavailable Evans_S Attending Clinician Unavailable Tomek_T Attending Clinician Unavailable KAREEM GUTIERRZE Attending Clinician Unavailable BRADEN_F Attending Clinician Unavailable PALLAVI PERKINS Attending Clinician Unavailable Pallavi Gotti Attending Clinician [phone] Unknown, Attending Attending Clinician Unavailab le Doctor Unassigned, Merritt Attending Clinician U BRAYAN Ortega Attending Clinician Unavailable ALLA WADE Attending Clinician UnavailZuri Garnica PA-C Attending Clinician [phone] Alla Zacarias Attending Clinician [phone] Randell GOLDSMITH, Regina Kim Attending Clinician Unavailab Wild Millan Attending Clinician [phone] Suha Nugent Attending Clinician [phone] SUHA VÁSQUEZ Attending Clinician Unavailable Garry Admitting Clinician Unavaila ble CHRETIEN_F Admitting Clinician Unavailable L_Pena Admitting Clinician Unavailable Evans_S Admitting Clinician Unavailable Tomek_T Admitting Clinician Unavailable BRADEN_F Admitting Clinician Unavailable Payers Payer Name Policy Type Policy Number Effective Date Expirati on Date Source Evalve [id number] 2017 00:00:00 [facility] [place] ([place]) [id number] [facility] [employer] [place] [id number] 2018 00:00:00 [facility] Problems Condition Name Condition Details Condition Category Status Onset Date Resolution Date Last Treatment Date Treating Clinician Comments Source Low back pain Low Back Pain Problem Active 2-05 00:00: 00 Radha Navarro [facility] Nausea Nausea Problem Active 2022-06 2- 00:00: 00 [facility] Body mass index 25-29 - overweight Body Mass Index 25-29 - Overweight Problem Active 2022-06 2-28 00:00: 00 [facility] Overweight Overweight Problem Active 2022-06 2-28 00:00: 00 [facility] Acute urinary tract infection Acute Urinary Tract Infection Problem Active 2022-06 2-28 00:00: 00 [facility] Dysuria Dysuria Problem Active 2022-06 2-28 00:00: 00 [facility] High-risk supervisio n, third trimester High-risk supervisio n, third trimester Disease Active 2016-06 00:00: [address] [facility] Monochorio bushra diamniotic twin gestation in third trimester Monochorio bushra diamniotic twin gestation in third trimester Disease Active 2016-06 00:00: 00 [facility] Twins Twins Disease Active 2016-06 00:00: 00 [facility] Nausea and vomiting in Nausea and vomiting in Disease Active 2016-06 00:00: 00 [facility] Acute seborrheic dermatitis Acute seborrheic dermatitis Problem [facility] Disturbanc e in sleep behavior Disturbanc e in sleep behavior Problem [facility] Status migrainosu s Migraine with status migrainosu s, not intractabl e, unspecifie d migraine type Problem [facility] Dysthymia Dysthymic disorder Problem [facility] Infectious colitis, enteritis and gastroente ritis Infectious gastroente ritis and colitis, unspecifie d Problem [facility] [id number] Encounter for immunizati on Problem [facility] [id number] Hepatitis B vaccinatio n status unknown Problem [facility] [id number] Strain of left wrist, initial encounter Problem [facility] [id number] Screening examinatio n for pulmonary tuberculos is Problem [facility] [id number] Intractabl e vomiting with nausea, unspecifie d vomiting type Problem [facility] [id number] Acute gastroente ritis Problem [facility] [id number] Measles, mumps, rubella (MMR) vaccinatio n status unknown Problem [facility] [id number] Tinea pedis of both feet Problem [facility] [id number] Atypical chest pain Problem [facility] [id number] Chest pain on breathing Problem [facility] [id number] Intractabl e migraine with aura with status migrainosu s Problem [facility] [id number] Psoriasis Problem [facility] [id number] HSV-2 (herpes simplex virus 2) infection Problem [facility] Allergies, Adverse Reactions, Alerts Allergy Name Allergy Type Status Severity Reaction(s) Onset Date Inactive Date Treating Clinician Comments Source Penicill ins Propensi ty to adverse reaction s Active 08-13 00:00: 00 [facility] Amoxicil db-Pot Clavulan ate Propensi ty to adverse reaction s Active 08-13 00:00: 00 [facility] AMOXICIL DB-POT CLAVULAN ATE DRUG Active 08-13 00:00: 00 [facility] PENICILL INS Drug Class Active 08-13 00:00: 00 [facility] Penicill ins Propensi ty to adverse reaction s Active 08-13 00:00: 00 [facility] Penicill ins Propensi ty to adverse reaction s Active 08-13 00:00: 00 [facility] 0 Drug allergy Active Unknown [facility] Augmenti n Allergy to substanc e Active [facility] PENICILL INS Allergy to substanc e [facility] Social History Social Habit Start Date Stop Date Quantity Comments Source Sex Assigned At [facility] History of Tobacco Use [facility] Exposure to SARS-CoV-2 (event) 2022-07-23 00:00:00 2022-08-02 13:04:00 Not sure [facility] Alcohol intake 2018-10-30 00:00:00 2018-10-30 00:00:00 Current non-drinker of alcohol (finding) [facility] Tobacco use and exposure 2016-10-12 00:00:00 2016-10-12 00:00:00 Smokeless tobacco non-user [facility] Smoking Status Start Date Stop Date Source Never Smoker [facility] Medications Ordered Medication Name Filled Medication Name Start Date Stop Date Current Medication? Ordering Clinician Indication Dosage Frequency Signature (SIG) Comments Components Source dexamethaso ne (DECADRON) injection 10 mg 08-02 19:50: 00 08-02 19:58 :00 No [id number] 10mg [facility] dexamethaso ne (DECADRON) injection 10 mg 08-02 19:50: 00 08-02 19:58 :00 No [id number] 10mg 10 mg, Intramuscu lar, ONCE, 1 dose, On Tue08/02/22 at 1400, Routine [facility] methylPREDN ISolone (MEDROL, REEMA,) 4 mg tablets 0 2-20 00:00: 00 Yes [id number] follow package directions [facility] methylPREDN ISolone (MEDROL, REEMA,) 4 mg tablets 2-20 00:00: 00 Yes [id number] follow package directions [facility] doxycycline hyclate 100 mg tablet 0 2-20 00:00: 00 08-13 05:59 :00 No [id number] 100mg Take 1 tablet by mouth in the morning and 1 tablet in the evening. Do all this for 10 days. [facility] benzonatate 200 mg capsule 2-20 00:00: 00 08-13 05:59 :00 No [id number] 200mg Take 1 capsule by mouth 3 (three) times daily as needed for Cough for up to 10 days. [facility] doxycycline hyclate 100 mg tablet 220 00:00: 00 08-13 05:59 :00 No [id number] 100mg Take 1 tablet by mouth in the morning and 1 tablet in the evening. Do all this for 10 days. [facility] benzonatate 200 mg capsule 220 00:00: 00 08-13 05:59 :00 No [id number] 200mg Take 1 capsule by mouth 3 (three) times daily as needed for Cough for up to 10 days. [facility] cephALEXin (KEFLEX) 500 mg capsule 09-29 00:00: 00 Yes [id number] 500mg Take 1 capsule by mouth 2 (two) times daily. [facility] cephALEXin (KEFLEX) 500 mg capsule 0 19 00:00: 00 Yes [id number] 500mg Take 1 capsule by mouth 2 (two) times daily. [facility] cephALEXin (KEFLEX) 500 mg capsule -19 00:00: 00 08-02 00:00 :00 No [id number] 500mg Take 1 capsule by mouth 2 (two) times daily. [facility] levonorgest rel (MIRENA) 20 mcg/24 hr (5 years) IUD 02-05 17:23: 20 Yes 1{devic e} 1 Device by Intrauteri ne route once now. [facility] levonorgest rel (MIRENA) 20 mcg/24 hr (5 years) IUD 02-05 17:23: 20 Yes 1{devic e} 1 Device by Intrauteri ne route once now. [facility] levonorgest rel (MIRENA) 20 mcg/24 hr (5 years) IUD 02-05 12:23: 20 Yes 1{devic e} 1 Device by Intrauteri ne route once now. [facility] levonorgest rel (MIRENA) 20 mcg/24 hr (5 years) IUD 02-05 12:23: 20 Yes 1{devic e} 1 Device by Intrauteri ne route once now. [facility] levonorgest rel (MIRENA) 20 mcg/24 hr (5 years) IUD 02-05 12:23: 20 Yes 1{devic e} 1 Device by Intrauteri ne route once now. [facility] levonorgest rel (MIRENA) 20 mcg/24 hr (5 years) IUD 02-05 12:23: 20 Yes 1{devic e} 1 Device by Intrauteri ne route once now. [facility] Ciprofloxac in HCl 500 MG Ciprofloxac in HCl 500 MG 07 00:00: 00 09-27 00:00 :00 No 1{table t} BID Ciprofloxa jocelynn HCl 500 MG Zofran Zofran 3- 00:00: 00 Yes Judi [place] 1 tablet as needed [facility] Topiramate Topiramate 08-12 00:00: 00 Yes Judi [place] 1 tablet [facility] Phenergan (Promethazi ne) Phenergan (Promethazi ne) 3- 00:00: 00 No 25mg [facility] Bactrim DS Bactrim DS 08-12 00:00: 00 08-19 00:00 :00 No Judi Henriquez 1 tablet [facility] levonorgest rel (MIRENA) 20 mcg/24 hr (5 years) IUD 10-30 15:44: 14 Yes 1{devic e} 1 Device by Intrauteri ne route once now. [facility] diclofenac sodium 75 mg tablet,otto yed release Take 1 tablet twice a day by oral route. diclofenac sodium 75 mg tablet,otto yed release Take 1 tablet twice a day by oral route. No 1 BID diclofenac sodium 75 mg tablet,del ayed release Take 1 tablet twice a day by oral route. [facility] Medrol (Reema) 4 mg tablets in a dose pack Take 1 dose pk by oral route as directed. Medrol (Reema) 4 mg tablets in a dose pack Take 1 dose pk by oral route as directed. No 1dose pk(s) Medrol (Reema) 4 mg tablets in a dose pack Take 1 dose pk by oral route as directed. [facility] tizanidine 2 mg tablet Take 1 tablet every 6-8 hours by oral route as needed. tizanidine 2 mg tablet Take 1 tablet every 6-8 hours by oral route as needed. No 1 Q7H tizanidine 2 mg tablet Take 1 tablet every 6-8 hours by oral route as needed. [facility] diclofenac sodium 75 mg tablet,otto yed release TAKE 1 TABLET BY MOUTH TWICE DAILY diclofenac sodium 75 mg tablet,otto yed release TAKE 1 TABLET BY MOUTH TWICE DAILY No diclofenac sodium 75 mg tablet,del ayed release TAKE 1 TABLET BY MOUTH TWICE DAILY [facility] lidocaine 5 % topical patch APPLY 1 PATCH BY TOPICAL ROUTE ONCE DAILY (MAY WEAR UP TO 12HOURS.) lidocaine 5 % topical patch APPLY 1 PATCH BY TOPICAL ROUTE ONCE DAILY (MAY WEAR UP TO 12HOURS.) No lidocaine 5 % topical patch APPLY 1 PATCH BY TOPICAL ROUTE ONCE DAILY (MAY WEAR UP TO 12HOURS.) [facility] tizanidine 2 mg tablet Take 1 tablet every 6-8 hours by oral route as needed. tizanidine 2 mg tablet Take 1 tablet every 6-8 hours by oral route as needed. No 1 Q7H tizanidine 2 mg tablet Take 1 tablet every 6-8 hours by oral route as needed. [facility] diclofenac sodium 75 mg tablet,otto yed release TAKE 1 TABLET BY MOUTH TWICE DAILY diclofenac sodium 75 mg tablet,otto yed release TAKE 1 TABLET BY MOUTH TWICE DAILY No diclofenac sodium 75 mg tablet,del ayed release TAKE 1 TABLET BY MOUTH TWICE DAILY [facility] lidocaine 5 % topical patch APPLY ONE PATCH TOPICALLY ONCE A DAY (MAY WEAR UP TO 12 HOURS) lidocaine 5 % topical patch APPLY ONE PATCH TOPICALLY ONCE A DAY (MAY WEAR UP TO 12 HOURS) No lidocaine 5 % topical patch APPLY ONE PATCH TOPICALLY ONCE A DAY (MAY WEAR UP TO 12 HOURS) [facility] tizanidine 2 mg tablet Take 1 tablet every 6-8 hours by oral route as needed. tizanidine 2 mg tablet Take 1 tablet every 6-8 hours by oral route as needed. No tizanidine 2 mg tablet Take 1 tablet every 6-8 hours by oral route as needed. [facility] diclofenac sodium 75 mg tablet,otto yed release TAKE 1 TABLET BY MOUTH TWICE DAILY diclofenac sodium 75 mg tablet,otto yed release TAKE 1 TABLET BY MOUTH TWICE DAILY No diclofenac sodium 75 mg tablet,del ayed release TAKE 1 TABLET BY MOUTH TWICE DAILY [facility] lidocaine 5 % topical patch USE 1 PATCH EXTERNALLY ONCE DAILY ( MAY WEAR UP TO 12 HOURS A DAY ) lidocaine 5 % topical patch USE 1 PATCH EXTERNALLY ONCE DAILY ( MAY WEAR UP TO 12 HOURS A DAY ) No lidocaine 5 % topical patch USE 1 PATCH EXTERNALLY ONCE DAILY ( MAY WEAR UP TO 12 HOURS A DAY ) [facility] tizanidine 2 mg tablet TAKE 1 TABLET BY MOUTH EVERY 6 TO 8 HOURS NEEDED FOR MUSCLE STRAIN tizanidine 2 mg tablet TAKE 1 TABLET BY MOUTH EVERY 6 TO 8 HOURS NEEDED FOR MUSCLE STRAIN No tizanidine 2 mg tablet TAKE 1 TABLET BY MOUTH EVERY 6 TO 8 HOURS NEEDED FOR MUSCLE STRAIN [facility] diclofenac sodium 75 mg tablet,otto yed release TAKE 1 TABLET BY MOUTH TWICE DAILY diclofenac sodium 75 mg tablet,otto yed release TAKE 1 TABLET BY MOUTH TWICE DAILY No diclofenac sodium 75 mg tablet,del ayed release TAKE 1 TABLET BY MOUTH TWICE DAILY [facility] lidocaine 5 % topical patch USE 1 PATCH EXTERNALLY ONCE DAILY ( MAY WEAR UP TO 12 HOURS A DAY ) lidocaine 5 % topical patch USE 1 PATCH EXTERNALLY ONCE DAILY ( MAY WEAR UP TO 12 HOURS A DAY ) No lidocaine 5 % topical patch USE 1 PATCH EXTERNALLY ONCE DAILY ( MAY WEAR UP TO 12 HOURS A DAY ) [facility] tizanidine 2 mg tablet TAKE 1 TABLET BY MOUTH EVERY 6 TO 8 HOURS NEEDED FOR MUSCLE STRAIN tizanidine 2 mg tablet TAKE 1 TABLET BY MOUTH EVERY 6 TO 8 HOURS NEEDED FOR MUSCLE STRAIN No tizanidine 2 mg tablet TAKE 1 TABLET BY MOUTH EVERY 6 TO 8 HOURS NEEDED FOR MUSCLE STRAIN [facility] diclofenac sodium 75 mg tablet,otto yed release TAKE 1 TABLET BY MOUTH TWICE DAILY diclofenac sodium 75 mg tablet,otto yed release TAKE 1 TABLET BY MOUTH TWICE DAILY No diclofenac sodium 75 mg tablet,del ayed release TAKE 1 TABLET BY MOUTH TWICE DAILY [facility] lidocaine 5 % topical patch USE 1 PATCH EXTERNALLY ONCE DAILY ( MAY WEAR UP TO 12 HOURS A DAY ) lidocaine 5 % topical patch USE 1 PATCH EXTERNALLY ONCE DAILY ( MAY WEAR UP TO 12 HOURS A DAY ) No lidocaine 5 % topical patch USE 1 PATCH EXTERNALLY ONCE DAILY ( MAY WEAR UP TO 12 HOURS A DAY ) [facility] tizanidine 2 mg tablet TAKE 1 TABLET BY MOUTH EVERY 6 TO 8 HOURS NEEDED FOR MUSCLE STRAIN tizanidine 2 mg tablet TAKE 1 TABLET BY MOUTH EVERY 6 TO 8 HOURS NEEDED FOR MUSCLE STRAIN No tizanidine 2 mg tablet TAKE 1 TABLET BY MOUTH EVERY 6 TO 8 HOURS NEEDED FOR MUSCLE STRAIN [facility] Dilcia Ha Yes Judi Henriquez not defined [facility] Mirena Mirena No Mirena Mirena Mirena No Mirena Fluocinonid e 0.05 % Fluocinonid e 0.05 % No 1{appli cation} BID Fluocinoni de 0.05 % valACYclovi r HCl 1 GM valACYclovi r HCl 1 GM No 1{table t} QD valACYclov ir HCl 1 GM Mirena Mirena No Mirena Fluocinonid e 0.05 % Fluocinonid e 0.05 % No 1{appli cation} BID Fluocinoni de 0.05 % valACYclovi r HCl 1 GM valACYclovi r HCl 1 GM No 1{table t} QD valACYclov ir HCl 1 GM valACYclovi r HCl 1 GM valACYclovi r HCl 1 GM No 1{table t} QD valACYclov ir HCl 1 GM Mirena Mirena No Mirena phenazopyri dine 200 mg tablet Take 1 tablet 3 times a day by oral route for 2 days, for urinary burning. phenazopyri dine 200 mg tablet Take 1 tablet 3 times a day by oral route for 2 days, for urinary burning. No 1 TID phenazopyr idine 200 mg tablet Take 1 tablet 3 times a day by oral route for 2 days, for urinary burning. [facility] sulfamethox azole 800 mg-trimetho prim 160 mg tablet Take 1 tablet every 12 hours by oral route for 10 days. sulfamethox azole 800 mg-trimetho prim 160 mg tablet Take 1 tablet every 12 hours by oral route for 10 days. No 1 Q12H sulfametho xazole 800 mg-trimeth oprim 160 mg tablet Take 1 tablet every 12 hours by oral route for 10 days. [facility] cyclobenzap rine 5 mg tablet TAKE 1 TABLET BY MOUTH EVERY 8 HOURS FOR 5 DAYS NEEDED FOR SPASMS cyclobenzap rine 5 mg tablet TAKE 1 TABLET BY MOUTH EVERY 8 HOURS FOR 5 DAYS NEEDED FOR SPASMS No cyclobenza demar 5 mg tablet TAKE 1 TABLET BY MOUTH EVERY 8 HOURS FOR 5 DAYS NEEDED FOR SPASMS [facility] diclofenac sodium 50 mg tablet,otto yed release Take 1 tablet twice a day by oral route for 5 days. diclofenac sodium 50 mg tablet,otto yed release Take 1 tablet twice a day by oral route for 5 days. No 1 BID diclofenac sodium 50 mg tablet,del ayed release Take 1 tablet twice a day by oral route for 5 days. [facility] naproxen 500 mg tablet TAKE 1 TABLET BY MOUTH TWICE DAILY NEEDED FOR PAIN naproxen 500 mg tablet TAKE 1 TABLET BY MOUTH TWICE DAILY NEEDED FOR PAIN No naproxen 500 mg tablet TAKE 1 TABLET BY MOUTH TWICE DAILY NEEDED FOR PAIN [facility] ondansetron 4 mg disintegrat ing tablet DISSOLVE 2 TABLETS IN MOUTH TWICE DAILY ondansetron 4 mg disintegrat ing tablet DISSOLVE 2 TABLETS IN MOUTH TWICE DAILY No ondansetro n 4 mg disintegra ting tablet DISSOLVE 2 TABLETS IN MOUTH TWICE DAILY [facility] phenazopyri dine 200 mg tablet TAKE 1 TABLET BY MOUTH THREE TIMES DAILY FOR URINARY BURNING FOR 2 DAYS phenazopyri dine 200 mg tablet TAKE 1 TABLET BY MOUTH THREE TIMES DAILY FOR URINARY BURNING FOR 2 DAYS No phenazopyr idine 200 mg tablet TAKE 1 TABLET BY MOUTH THREE TIMES DAILY FOR URINARY BURNING FOR 2 DAYS [facility] tizanidine 2 mg tablet Take 1 tablet every 8 hours by oral route for 5 days. tizanidine 2 mg tablet Take 1 tablet every 8 hours by oral route for 5 days. No 1 Q8H tizanidine 2 mg tablet Take 1 tablet every 8 hours by oral route for 5 days. [facility] Fluocinonid e 0.05 % Fluocinonid e 0.05 % 05-22 00:00 :00 No 1{appli cation} BID Fluocinoni de 0.05 % Immunizations Ordered Immunization Name Filled Immunization Name Date Status Comments Source Flucelvax - multidose vial Flucelvax - multidose vial 2021-05-13 09:41:00 [facility] Flucelvax - multidose vial Flucelvax - multidose vial 2021-05-13 09:41:00 Completed [facility] Flucelvax - multidose vial Flucelvax - multidose vial 2021-05-13 09:41:00 Completed [facility] Moderna COVID-19 Vaccine Moderna COVID-19 Vaccine 2020-08-22 13:27:00 Completed [facility] Moderna COVID-19 Vaccine Moderna COVID-19 Vaccine 2020-08-22 13:27:00 Completed [facility] Moderna COVID-19 Vaccine Moderna COVID-19 Vaccine 2020-08-22 13:27:00 Completed [facility] Moderna COVID-19 Vaccine Moderna COVID-19 Vaccine 2020-08-22 13:27:00 Completed [facility] Moderna COVID-19 Vaccine Moderna COVID-19 Vaccine 2020-07-22 13:27:00 Completed [facility] Moderna COVID-19 Vaccine Moderna COVID-19 Vaccine 2020-07-22 13:27:00 [facility] 2020-07-22 13:27:00 [facility] Moderna COVID-19 Vaccine 2020-07-22 13:27:00 Completed [facility] Phenergan (Promethazine) Phenergan (Promethazine) 2019-08-13 22:02:00 Completed [facility] MMR Booster 2018-09-12 00:00:00 Completed [facility] MMR Booster 2018-09-12 00:00:00 Completed [facility] MMR Booster 2018-09-12 00:00:00 Completed [facility] MMR Booster 2018-09-12 00:00:00 Completed [facility] MMR Booster 2018-09-12 00:00:00 Completed [facility] MMR Booster 2018-09-12 00:00:00 Completed [facility] MMR Booster 2018-09-12 00:00:00 Completed [facility] Tb PPD intradermal, Tb PPD intradermal, 2018-08-29 15:09:00 Completed [facility] Tb PPD intradermal, Tb PPD intradermal, 2018-08-29 15:09:00 Completed [facility] Tb PPD intradermal, Tb PPD intradermal, 2018-08-29 15:09:00 Completed [facility] Tb PPD intradermal, Tb PPD intradermal, 2018-08-29 15:09:00 Completed [facility] Tb PPD intradermal, Tb PPD intradermal, 2018-08-29 00:00:00 Completed [facility] Influenza Virus Vaccine Quad IM 3+ YRS 2017-03-17 00:00:00 Completed [facility] TDAP 2017-03-17 00:00:00 Completed [facility] Influenza Virus Vaccine Quad IM 3+ YRS 2017-03-17 00:00:00 Completed [facility] TDAP 2017-03-17 00:00:00 Completed [facility] Influenza Virus Vaccine Quad IM 3+ YRS 2017-03-17 00:00:00 Completed [facility] TDAP 2017-03-17 00:00:00 Completed [facility] Influenza Virus Vaccine Quad IM 3+ YRS 2017-03-17 00:00:00 Completed [facility] TDAP 2017-03-17 00:00:00 Completed [facility] Influenza Virus Vaccine Quad IM 3+ YRS 2017-03-17 00:00:00 Completed [facility] TDAP 2017-03-17 00:00:00 Completed [facility] Influenza Virus Vaccine Quad IM 3+ YRS 2017-03-17 00:00:00 Completed [facility] TDAP 2017-03-17 00:00:00 Completed [facility] Influenza Virus Vaccine Quad IM 3+ YRS 2017-03-17 00:00:00 Completed [facility] TDAP 2017-03-17 00:00:00 Completed [facility] Influenza, injectable, MDCK, quadrivalent - ML Influenza, injectable, MDCK, quadrivalent - ML Unknown Completed [facility] Influenza, injectable, MDCK, quadrivalent - ML Influenza, injectable, MDCK, quadrivalent - ML Unknown Completed [facility] Influenza, injectable, MDCK, quadrivalent - ML Influenza, injectable, MDCK, quadrivalent - ML Unknown Completed [facility] Vital Signs Vital Name Observation Time Observation Value Comments S ource BP Diastolic 2023-08-25 00:00:00 82 mm[Hg] [facility] BMI (Body Mass Index) 2023-08-25 00:00:00 26.1 kg/m2 [facility] Height 2023-08-25 00:00:00 69 [in_i] [facility] BP Systolic 2023-08-25 00:00:00 128 mm[Hg] [facility] Body Weight 2023-08-25 00:00:00 2825.6 [oz_av] [facility] BP Diastolic 2023-08-18 00:00:00 81 mm[Hg] [facility] Body Weight 2023-08-18 00:00:00 2777.6 [oz_av] [facility] BP Systolic 2023-08-18 00:00:00 131 mm[Hg] [facility] BMI (Body Mass Index) 2023-08-18 00:00:00 25.6 kg/m2 [facility] Height 2023-08-18 00:00:00 69 [in_i] [facility] BP Diastolic 2023-08-03 00:00:00 74 mm[Hg] [facility] BP Systolic 2023-08-03 00:00:00 113 mm[Hg] [facility] BMI (Body Mass Index) 2023-08-03 00:00:00 25.4 kg/m2 [facility] Height 2023-08-03 00:00:00 69 [in_i] [facility] Body Weight 2023-08-03 00:00:00 2755.2 [oz_av] [facility] BP Diastolic 2023-07-21 00:00:00 69 mm[Hg] [facility] Body Weight 2023-07-21 00:00:00 2739.2 [oz_av] [facility] BP Systolic 2023-07-21 00:00:00 120 mm[Hg] [facility] Height 2023-07-21 00:00:00 69 [in_i] [facility] BMI (Body Mass Index) 2023-07-21 00:00:00 25.3 kg/m2 [facility] Height 2023-07-18 00:00:00 69 [in_i] [facility] Body Weight 2023-07-18 00:00:00 2739.2 [oz_av] [facility] BP Diastolic 2023-07-18 00:00:00 83 mm[Hg] [facility] [facility] BMI (Body Mass Index) 2023-07-18 00:00:00 25.3 kg/m2 [facility] BP Systolic 2023-07-18 00:00:00 121 mm[Hg] [facility] BMI (Body Mass Index) 2023-07-06 00:00:00 25.3 kg/m2 [facility] BP Systolic 2023-07-06 00:00:00 101 mm[Hg] [facility] BP Diastolic 2023-07-06 00:00:00 68 mm[Hg] [facility] Height 2023-07-06 00:00:00 69 [in_i] [facility] Body Weight 2023-07-06 00:00:00 2736 [oz_av] [facility] BP Diastolic 2023-06-30 00:00:00 80 mm[Hg] [facility] Body Weight 2023-06-30 00:00:00 2736 [oz_av] [facility] BP Systolic 2023-06-30 00:00:00 113 mm[Hg] [facility] Height 2023-06-30 00:00:00 65 [in_i] [facility] BMI (Body Mass Index) 2023-06-30 00:00:00 28.5 kg/m2 [facility] Height 2023-06-07 00:00:00 65 [in_i] [facility] Body Weight 2023-06-07 00:00:00 2741 [oz_av] [facility] BP Diastolic 2023-06-07 00:00:00 79 mm[Hg] [facility] BMI (Body Mass Index) 2023-06-07 00:00:00 28.5 kg/m2 [facility] BP Systolic 2023-06-07 00:00:00 112 mm[Hg] [facility] BMI (Body Mass Index) 2023-04-26 00:00:00 28.5 kg/m2 [facility] Body Weight 2023-04-26 00:00:00 2736 [oz_av] [facility] BP Diastolic 2023-04-26 00:00:00 77 mm[Hg] [facility] Height 2023-04-26 00:00:00 65 [in_i] Mejia flanagan [facility] BP Systolic 2023-04-26 00:00:00 110 mm[Hg] Eitan norman [facility] Systolic blood pressure 2022-08-02 19:33:00 119 mm[Hg] [facility] Diastolic blood pressure 2022-08-02 19:33:00 83 mm[Hg] [facility] Heart rate 2022-08-02 19:33:00 116 /min [facility] Body temperature 2022-08-02 19:33:00 37.39 [facility] Respiratory rate 2022-08-02 19:33:00 16 /min [facility] Body height 2022-08-02 19:33:00 175.3 cm [facility] Body weight 2022-08-02 19:33:00 71.079 kg [facility] BMI 2022-08-02 19:33:00 23.14 kg/m2 [facility] Oxygen saturation in Arterial blood by Pulse oximetry 2022-08-02 19:33:00 98 /min [facility] height 2022-04-22 08:40:00 68 [in_i] Commo n [facility] weight 2022-04-22 08:40:00 157 [lb_av] Comm on [facility] temperature 2022-04-22 08:40:00 98.2 [degF] Com mon [facility] bmi 2022-04-22 08:40:00 23.87 kg/m2 Comm on [facility] oximetry 2022-04-22 08:40:00 100 % Commo n [facility] respiratory rate 2022-04-22 08:40:00 16 /min Common [facility] blood pressure systolic 2022-04-22 08:40:00 117 mm[Hg] [facility] blood pressure diastolic 2022-04-22 08:40:00 78 mm[Hg] [facility] Systolic blood pressure 2021-09-30 00:39:00 119 mm[Hg] [facility] Diastolic blood pressure 2021-09-30 00:39:00 81 mm[Hg] [facility] Heart rate 2021-09-30 00:39:00 86 /min [facility] Body temperature 2021-09-30 00:39:00 37.17 [facility] Respiratory rate 2021-09-30 00:39:00 18 /min [facility] Body height 2021-09-30 00:39:00 172.7 cm [facility] Body weight 2021-09-30 00:39:00 67.388 kg [facility] BMI 2021-09-30 00:39:00 22.59 kg/m2 [facility] Oxygen saturation in Arterial blood by Pulse oximetry 2021-09-30 00:39:00 100 /min [facility] height 2021-05-13 09:20:00 68.5 [in_i] Comm on [facility] weight 2021-05-13 09:20:00 161 [lb_av] Comm on [facility] temperature 2021-05-13 09:20:00 98.1 [degF] Com mon [facility] bmi 2021-05-13 09:20:00 24.12 kg/m2 Comm on [facility] oximetry 2021-05-13 09:20:00 98 % Commo n [facility] respiratory rate 2021-05-13 09:20:00 16 /min [facility] blood pressure systolic 2021-05-13 09:20:00 105 mm[Hg] [facility] blood pressure diastolic 2021-05-13 09:20:00 52 mm[Hg] [facility] Systolic blood pressure 2021-02-05 17:23:00 112 mm[Hg] [facility] Diastolic blood pressure 2021-02-05 17:23:00 76 mm[Hg] [facility] Heart rate 2021-02-05 17:23:00 99 /min [facility] Body temperature 2021-02-05 17:23:00 37.39 [facility] Respiratory rate 2021-02-05 17:23:00 18 /min [facility] Body height 2021-02-05 17:23:00 175.3 cm [facility] Body weight 2021-02-05 17:23:00 74.078 kg [facility] BMI 2021-02-05 17:23:00 24.12 kg/m2 [facility] Oxygen saturation in Arterial blood by Pulse oximetry 2021-02-05 17:23:00 98 /min [facility] height 2020-09-17 13:00:00 68.5 [in_i] Comm on [facility] weight 2020-09-17 13:00:00 165 [lb_av] Comm on [facility] temperature 2020-09-17 13:00:00 98.7 [degF] Com mon [facility] bmi 2020-09-17 13:00:00 24.72 kg/m2 Comm on [facility] Procedures Procedure Date / Time Performed Performing Clinician Source MRI, lumbar spine, w/o contrast 2023-07-21 00:00:00 [facility] XR, lumbosacral spine, 2 or 3 view 2023-07-06 00:00:00 [facility] POCT SARS-COV-2 ANTIGEN (BINAX NOW) 2022-08-02 19:57:00 Pallavi Perkins [facility] POCT MOLECULAR FLU 2022-08-02 19:36:00 Unknown, Attend ing [facility] ASSIGNMENT OF BENEFITS 2022-08-02 19:06:19 Docto r Unassigned, [facility] POCT URINALYSIS 2021-09-30 00:46:00 [facility] RAPID STREP SCREEN FOR GROUP A 2021-02-05 17:35:00 Suha Vásquez [facility] CONSENT/REFUSAL FOR DIAGNOSIS AND TREATMENT 2021-02-05 17:11:07 Doctor Unassigned, [facility] ASSIGNMENT OF BENEFITS 2021-02-05 17:10:50 Docto r Unassigned, [facility] Delivery [facility] Plan of Care Planned Activity Planned Date Details Comments Source Diagnostic Test Pending 2023-06-07 00:00:00 urinalysis, dipstick [code = urinalysis, dipstick] [facility] Future Appointment 2023-09-26 09:30:[address]; [address], [place] [address] [facility] Instructions [facility] dical Group Instructions [facility] Encounters Start Date/Time End Date/Time Encounter Type Admission Type Attending Clinicians Care Facility Care Department Encounter ID Source 2022-10-15 10:09:04 Outpatient [facility] [id number] [facility] 2022-05-04 10:08:01 Outpatient Judi Henriquez [facility] [id number] [facility] 2022-04-20 16:52:00 [address] Judi [facility] [id number] [facility] 2021-07-08 14:22:09 Outpatient Judi Henriquez [facility] [id number] [facility] 2023-08-25 00:00:00 2023-08-25 00:00:00 Davonte Martin APRN-ISABELLE-B C: [address] [place] [address], [address], [place] [address] , Ph. [facility] [id number] [facility] 2023-08-23 00:00:00 2023-08-23 00:00:00 Outpatient Raji Andres AOSM AO [id number] [facility] 2023-08-18 00:00:00 2023-08-18 00:00:00 Davonte Martin APRN-TUBE BLOWER-B C: [address] [facility], [address], [place] [address] , Ph. [facility] [id number] [facility] 2023-08-05 00:00:00 2023-08-05 00:00:00 Outpatient RACHEL_Cecilia _Miguel Ángel_ [facility] [id number] [facility] 2023-08-03 00:00:00 2023-08-03 00:00:00 Outpatient R RADIOLOGY [facility] [id number] [facility] 2023-08-03 00:00:00 2023-08-03 00:00:00 Outpatient CHRETIEN_F [facility] [id number] [facility] 2023-08-03 00:00:00 2023-08-03 00:00:00 Davonte CODY Martin-TUBE BLOWER-B C: [address] [facility] [facility], [address], [place] [address] , Ph. [facility] [id number] [facility] 2023-08-01 13:25:00 2023-08-01 13:25:00 Outpatient JANICE SANDOVALGHULAMDAVONTE [facility] [id number] [facility] 2023-07-22 00:00:00 2023-07-22 00:00:00 Outpatient CHRETIEN_F [facility] [id number] [facility] 2023-07-21 00:00:00 2023-07-21 00:00:00 Davonte CODY Martin-TUBE BLOWER-B C: [address] [facility], [address], [place] [address] , Ph. [facility] [id number] [facility] 2023-07-18 00:00:00 2023-07-18 00:00:00 Davonte Martin APRN-TUBE BLOWER-B C: [address] [place] [address], [address] [address] , Ph. [facility] [id number] [facility] 2023-07-13 00:00:00 2023-07-13 00:00:00 Outpatient CHRETIEN_F [facility] [id number] [facility] 2023-07-06 00:00:00 2023-07-06 00:00:00 Outpatient L_Pena [facility] [id number] [facility] 2023-07-06 00:00:00 2023-07-06 00:00:00 Nury Kinsey APRN, MSN, TUBE BLOWER-BC: [address] [facility], [address] [place] [address] , Ph. [facility] [id number] [facility] 2023-07-05 00:00:00 2023-07-05 00:00:00 Outpatient L_Pena [facility] [id number] [facility] 2023-06-30 00:00:00 2023-06-30 00:00:00 Outpatient Evans_S MM[facility] [id number] [facility] 2023-06-30 00:00:00 2023-06-30 00:00:00 Kareem Gutierrez MD: [address] [place] [address], [address], [place] [address] , Ph. [facility] [id number] [facility] 2023-06-29 00:00:00 2023-06-29 00:00:00 Outpatient Evans_S [facility] [id number] [facility] 2023-06-07 00:00:00 2023-06-07 00:00:00 Outpatient Robinson_S [facility] [id number] [facility] 2023-06-07 00:00:00 2023-06-07 00:00:00 JALYN Harden: [address] [facility], [address], [place] [address] , Ph. [facility] [id number] [facility] 2023-04-27 00:00:00 2023-04-27 00:00:00 Outpatient Tomek_T MMG [facility] [id number] [facility] 2023-04-26 09:26:00 2023-04-26 09:26:00 Outpatient KAREEM RALPH [facility] [id number] [facility] 2023-04-26 00:00:00 2023-04-26 00:00:00 Outpatient Tomek_T MMG [facility] [id number] [facility] 2023-04-26 00:00:00 2023-04-26 00:00:00 Kareem Gutierrez MD: [address] [facility], [address], [place] [address] , Ph. [facility] [id number] [facility] 2023-04-25 00:00:00 2023-04-25 00:00:00 Outpatient Tomek_T [facility] [id number] [facility] 2023-04-18 00:00:00 2023-04-18 00:00:00 Outpatient BRADEN_F [facility] [id number] [facility] 2022-08-02 13:00:00 2022-08-02 14:15:09 Outpatient PALLAVI HERNANDEZ [facility] [id number] [facility] 2022-08-02 13:00:00 2022-08-02 14:15:09 Urgent Care Pallavi Perkins Unknown, Attending [facility] 1.840.114 [id number] [id number] [facility] 2022-08-02 00:00:00 2022-08-02 00:00:00 Orders Only Doctor Unassigned, [facility] 1.840.114 350.1.13.10 4.2.7.2.686 [id number] [facility] 2022-08-02 00:00:00 2022-08-02 00:00:00 Letter (Out) Alicia Perkinspadmini [facility] 1..840.114 350.1.13.10 [id number] [id number] [facility] 2022-04-22 00:00:00 2022-04-22 00:00:00 OFFICE VISIT EST PT LEVEL 3 STLMLC STLMLC [id number] [facility] 2021-12-04 14:00:00 2021-12-04 14:00:00 Outpatient BRAYAN WINSTON [facility] [id number] [facility] 2021-09-29 19:40:00 2021-09-29 20:01:01 Outpatient DARRON HANSENTANY [facility] [id number] [facility] 2021-09-29 19:40:00 2021-09-29 20:01:01 [facility] 1..840.114 350.1.13.10 4.2.7.2.686 [id number] [facility] 2021-06-29 00:00:00 2021-06-29 00:00:00 (TEL) STLMLC STLMLC [id number] [facility] 2021-05-13 00:00:00 2021-05-13 00:00:00 OFFICE VISIT EST PT LEVEL 3 STLMLC STLMLC [id number] [facility] 2021-03-04 13:30:00 2021-03-04 13:30:00 Outpatient BRAYAN WINSTON [facility] [id number] [facility] 2021-02-06 00:00:00 2021-02-06 00:00:00 Letter (Out) Regina Mejias [facility] 1..840.114 350.1.13.10 4.2.7.2.686 [id number] [facility] 2021-02-05 12:11:44 2021-02-05 12:31:44 Urgent Care [place] 1..840.114 350.1.13.10 4.2.7.2.686 [id number] [facility] 2021-02-05 12:20:00 2021-02-05 12:20:00 Outpatient Philipp [facility] [id number] [facility] 2021-02-05 00:00:00 2021-02-05 00:00:00 Orders Only Doctor Unassigned, [facility] 1.840.114 350.1.13.10 4.2.7.2.686 [id number] [facility] 2020-09-17 00:00:00 2020-09-17 00:00:00 OFFICE VISIT EST PT LEVEL 3 STLMLC STLMLC [id number] [facility] 2020-04-16 00:00:00 2020-04-16 00:00:00 Outpatient STLMLC STLMLC [id number] [facility] 2020-03-13 00:00:00 2020-03-13 00:00:00 Outpatient STLMLC STLMLC [id number] [facility] 2020-03-10 00:00:00 2020-03-10 00:00:00 Outpatient STLMLC STLMLC [id number] [facility] 2020-02-19 13:30:00 2020-02-19 13:30:00 Outpatient Philipp BRAYAN BELLAMY [facility] [id number] [facility] 2019-08-13 16:40:00 2019-08-13 16:40:[address] [facility] [id number] [facility] 2019-04-04 15:00:00 2019-04-04 15:00:00 [facility] [id number] [facility] 2018-11-28 15:40:00 2018-11-28 15:40:00 [facility] [id number] [facility] 2018-10-09 10:30:00 2018-10-09 10:30:00 [facility] [id number] [facility] 2018-09-27 13:51:00 2018-09-27 13:51:00 [facility] [id number] [facility] 2018-09-25 15:40:00 2018-09-25 15:40:00 [facility] [id number] [facility] 2018-09-25 11:30:00 2018-09-25 11:30:00 [facility] [id number] [facility] 2018-08-29 14:30:00 2018-08-29 14:30:[address] [facility] [id number] [facility] Results Test Description Test Time Test Comments Results Result Co mments Source [facility] SARS-COV-2 ANTIGEN (BINAX NOW)2022-08-02 19:57:00* Test Item Value Reference Range Interpretation Comme nts POCT SARS-COV-2 ANTIGEN (bennett t code = 46015-2) Not Detected Not Detected On board controls acceptable with C Line (test code = 3574) Yes [facility] MOLECULAR [id number] 19:48:52* Test Item Value Reference Range Interpretation Comme nts POCT Molecular FluA (test co de = 96168-3) Negative Negative POCT Molecular FluB (test co de = 05059-7) Negative Negative Lab Interpretation (test cod e = 61050-6) Normal [facility] URINALYSIS W SPECIFIC [id number] 00:47:00* Test Item Value Reference Range Interpretation Comme nts POCT U SP GRAV (test code = 3255) 1.000 mg/dl 1.005-1.025 A POCT PH U (test code = 3254) 6 mg/dl 5-8 POCT U LEUK EST (test code = 3263) 2+ Negative - Negative POCT U NIT (test code = 3262) negative Negative - Negative POCT U PROT (test code = 3259) trace Negative - Negative POCT U GLU (test code = 3256) normal Negative - Negative POCT U KETONE (test code = 3258) negative Negative - Negative POCT U UROBILI (test code = 3260) normal 0.2-1 POCT U BILI (test code = 3261) negative Negative - Negative POCT U BLD (test code = 3257) Negative - Negative POCT U COLOR (test code = 3266) santos POCT U APPEAR (test code = 3267) cloudy KINSEY (test code = KINSEY) accurate developme nt and interpretation of all internal controls Lab Interpretation (test code = 01593-6) Abnormal [facility] RAPID STREP SCREEN FOR GROUP [id number] 17:45:00* Test Item Value Reference Range Interpretation Comme nts POCT GP A STREP (test code = 48139-2) neg Negative - Negative KINSEY (test code = KINSEY) Lab Interpretation (test cod e = 73530-5) Normal [facility]
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
[2023-09-10] MEDS ORDERED: CYCLOBENZAPRINE 10 MG TAB ONE (16:03)
[2023-09-10] MEDS ORDERED: HYDROCODONE/APAP 5/325 MG TAB ONE (16:03)
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
[2023-09-10 16:50] VITALS: BP 129/85; TEMP 98.1; O2SAT 100
== END 2023-09-10 16:17 | disposition home or self-care (01) ==
LOC: ER 15:08
DX: M62.830 Muscle spasm of back (principal); V49.40XA Driver injured in collision with unspecified motor vehicles in traffic accident, initial encounter; Z88.0 Allergy status to penicillin; Z88.1 Allergy status to other antibiotic agents
CPT/HCPCS: 99283